=== PATIENT | female | born 1995 | race Caucasian/White ===

== ENCOUNTER 2023-01-07 09:09 | Outpatient (CLI) | payer BC, SELFPAY ==
--- NOTE | 2023-01-07 10:00 | MR_ITS ---
WS: [id number] MRA HEAD TECHNIQUE: Axial 3-D TOF images obtained with axial images and axial, sagittal, and coronal 2-D refor matted images. CLINICAL INFORMATION: R51.9 - Headache, unspecified COMPARISON: None. FINDINGS: Distal vertebral arteries are patent. Basilar artery is patent. Normal vascularity to the [employer] territo ry bilaterally. Patent posterior communicating arteries bilaterally. Both ICAs are patent at the skull base. Patent anterior communicating artery. Normal vascularity to t he EDUARD and MCA territories bilaterally. No evidence of high-grade proximal stenosis or aneurysm. IMPRESSION: Normal intracranial MRA.
--- NOTE | 2023-01-07 10:15 | MR_ITS ---
WS: [id number] MRI HEAD WITHOUT CONTRAST TECHNIQUE: Sagittal T1, T2 axial, T2 axial FLAIR, axial and coronal T1 images, axial susceptibility w eighted imaging, axial diffusion weighted images, and coronal T2 images were obtained. CLINICAL INFORMATION: G43.711 - Chronic migraine without aura, intractable, wit... COMPARISON: None. FINDINGS: No evidence of restricted diffusion to suggest acute ischemia. Ventricular system and basal cisterns are patent. No suspicious intracranial signal normalities. Normal smith-white differentiation. Normal posterior fossa. Normal vascular flow voids at the skull base. No extra-axial fluid collections. No m ass or mass effect. No hemosiderin on the susceptibly weighted images. Normal optic chiasm and pituitary infundibulum. No rmal cavernous sinuses and Meckel's cave. Paranasal sinuses are well aerated. Normal visualized orbits. Mastoid air cells are well aerated. Nor mal posterior nasopharynx. IMPRESSION: 1. No evidence of restricted diffusion to suggest acute ischemia. 2. No suspicious intracranial signal normalities. 3. No hemosiderin on susceptibly weighted images. 4. No other suspicious findings.
== END 2023-01-07 09:10 | disposition home or self-care (01) ==
LOC: RAD 09:09
PROVIDERS: PCP Nurse Practitioner; Visit Provider Specialist
DX: G43.711 Chronic migraine without aura, intractable, with status migrainosus (principal)
CPT/HCPCS: 70544; 70551